=== PATIENT | male | born 1995 | race Caucasian/White ===

== ENCOUNTER 2022-07-17 09:36 | Emergency (ER) | payer OTHER, SELFPAY ==
[2022-07-17 09:47] VITALS: BP 121/76; PULSE 72; RESP 14; TEMP 36.8; O2SAT 98; BMI 21.3
[2022-07-17 10:29] VITALS: BP 121/76; PULSE 72; RESP 14; TEMP 36.8
--- NOTE | 2022-07-17 10:31 | ED.GENADULT ---
HPI - General Adult General Date Seen: 07/17/22 Chief complaint: Laceration/Wound Stated complaint: Work comp hit head needs stitches Time Seen by Provider: 07/17/22 09:37 Source: patient and metal furnace operator History of Present Illness HPI narrative: Patient is a 27-year-old male with a work related injury. He sustained a laceration on the right frontal scalp when a pig [employer] door that he was working on swung forward and hit him in the head. He did not have any loss of consciousness although he felt a little woozy when it 1st happened. He has pain in the area, no vomiting, altered mentation, seizure, or other signs of severe head injury. It bled quite a bit at 1st, he showered and washed the area prior to coming in. Tetanus is up-to-date. No other injuries or complaints. No neck pain. Related Data Home Medications Medication Instructions Recorded Confirmed No Known Home Medications 07/17/22 07/17/22 Allergies Allergy/AdvReac Type Severity Reaction Status Date / Time No Known Drug Allergies Allergy Verified 07/17/22 09:51 Review of Systems Status of ROS: Reports: 6 or more systems reviewed and unremarkable except as noted in History and below [facility] Social History Smoking Status: Smoker, status unknown Exam Narrative: Exam Narrative: In general, an alert, well-appearing young man. Head: Normocephalic. He has a 1/2 cm curvilinear laceration on the left frontal scalp. Bleeding is controlled. Eyes: Pupils are equal and reactive. Extraocular movements are full. ENT: No facial trauma. Neck: Supple, nontender. Neurologic: He is alert, conversant, gait normal. Moves all extremities. Skin: Warm and dry. Otherwise well perfused and intact. Const: Vital Signs, click to edit/add: Vital Signs - 24 hr 07/17/22 09:47 07/17/22 10:29 Temperature 98.3 F 98.3 F Pulse Rate [Pulse Oximeter] 72 72 Respiratory Rate 14 14 Blood Pressure [Ri ght Upper Arm] 121/76 121/76 Pulse Oximetry 98 Oxygen Delivery Me thod Room Air Documenting provider has reviewed patient's vital signs: yes Course Course Hospital Course: Procedure note: The wound was cleaned and explored. No evidence of foreign body. I closed it using Dermabond and hair apposition technique. He tolerated this well without immediate complication. Wound care and Dermabond care was discussed. Return for signs of infection, severe headache, vomiting, etc.. Vital Signs Vital signs: Initial Vital Signs Temperature 98.3 F 07/17/22 09:47 Temperature Source Temporal Artery Scan 07/17/22 09:47 Pulse Rate 72 07/17/22 09:47 Pulse Rhythm 07/17/22 09:47 Respiratory Rate 14 07/17/22 09:47 Blood Pressure 121/76 07/17/22 09:47 Blood Pressure Mean 91 07/17/22 09:47 Blood Pressure Position Sitting 07/17/22 09:47 Pulse Oximetry 98 07/17/22 09:47 Oxygen Delivery Method 07/17/22 09:47 Vital Signs Temperature 98.3 F 07/17/22 09:47 Pulse Rate 72 07/17/22 09:47 Respiratory Rate 14 07/17/22 09:47 Blood Pressure 121/76 07/17/22 09:47 Pulse Oximetry 98 07/17/22 09:47 Oxygen Delivery Method 07/17/22 09:47 Temperature 98.3 F 07/17/22 10:29 Pulse Rate 72 07/17/22 10:29 Respiratory Rate 14 07/17/22 10:29 Blood Pressure 121/76 07/17/22 10:29 Pulse Oximetry 98 07/17/22 09:47 Oxygen Delivery Method 07/17/22 09:47 Discharge Plan Discharge Clinical Impression: Laceration of scalp Patient Disposition: Home, Self-Care Condition: Improved Instructions: Laceration (ED), Skin Adhesive Care (ED) Additional Instructions: Return for signs of infection. Prescriptions: No Action No Known Home Medications Stand Alone Forms: [facility] Info Instructions
== END 2022-07-17 10:30 | disposition home or self-care (01) ==
LOC: ED 10:20
PROVIDERS: Emergency Provider Emergency Medicine
DX: S01.01XA Laceration without foreign body of scalp, initial encounter (principal); W22.8XXA Striking against or struck by other objects, initial encounter
CPT/HCPCS: 12001; 99283; 99284